=== PATIENT | male | born 1990 | race Two or more races ===

== ENCOUNTER 2023-03-30 12:02 | Emergency (ER) | payer MEDICAID ==
[~2023-03-30] VITALS: Ht 182.9 cm; Wt 72.6 kg
[2023-03-30 12:07] VITALS: BP 150/80; TEMP 98.3
[2023-03-30] MEDS ORDERED: IBUP-1953 PO ×2 (12:48→13:00)
[2023-03-30] MEDS ORDERED: CEPH500T PO ×3 (12:48→13:00)
[2023-03-30 13:12] VITALS: O2SAT 99
== END 2023-03-30 13:13 | disposition home or self-care (01) ==
LOC: ER 12:07
DX: L03.011 Cellulitis of right finger (principal); Z79.899 Other long term (current) drug therapy
CPT/HCPCS: 99283; 10060; A6403